=== PATIENT | female | born 1980 | race Caucasian/White ===

== ENCOUNTER 2021-11-04 11:44 | Outpatient (CLI) | payer BC, SELFPAY ==
--- NOTE | 2021-11-04 11:58 | XR_ITS ---
WS: [email or web address] XR hand LT 2V [id number] REASON FOR EXAM: M25.50 - Pain in unspecified joint FINDINGS: No fracture or dislocation. No focal bone lesion or periosteal reaction. Joint spaces of the hand are well preserved. No erosions or soft tissue abnormality. XR/XR hand LT 2V [id number] IMPRESSION: No significant abnormality.
--- NOTE | 2021-11-04 11:58 | XR_ITS ---
WS: [email or web address] XR sacroiliac jts m 3V [id number] REASON FOR EXAM: L40.9 - Psoriasis, unspecified FINDINGS: There is symmetric narrowing of the sacroiliac joints marginated by sclerosis on both the iliac and s acral sides of the joint space. No erosions. There is bridging and partial fusion right. Symmetric rarefaction/lucency in the periphery of the sacral wings marginated by thin sclerotic lines . XR/XR sacroiliac jts m 3V [id number] IMPRESSION: Sacroiliitis compatible with spondyloarthropathy. Lucencies in the sacrum are thought to be congenital/developmental. Not signifi cant.
--- NOTE | 2021-11-04 11:58 | XR_ITS ---
WS: [email or web address] XR lumbar spine 2-3V* [id number] REASON FOR EXAM: M25.50 - Pain in unspecified joint FINDINGS: No significant compression deformity or other focal vertebral body abnormality. Disc spaces L1-L5 relatively well-preserved. Mild to moderate narrowing of the L5-S1 disc space. No spondylolisthesis or spondylolysis. XR/XR lumbar spine 2-3V* [id number] IMPRESSION: Mild changes of degenerative spondylosis at L5-S1.
--- NOTE | 2021-11-04 11:58 | XR_ITS ---
WS: [email or web address] XR hand RT 2V [id number] REASON FOR EXAM: M25.50 - Pain in unspecified joint FINDINGS: No fracture or dislocation. No focal bone lesion. No periosteal reaction. Joint spaces of the right hand are well preserved. No erosions or soft tissue abnormality. XR/XR hand RT 2V [id number] IMPRESSION: No significant abnormality.
[2021-11-04 13:06] LABS: Erythrocyte Sedimentation Rate 26 mm/hr (0-15)
[2021-11-04 13:20] LABS: C Reactive Protein 4.6 mg/L (0.0-4.9); Creatine Phosphokinase 90 U/L (26-192); Ferritin 474 ng/mL (15-150); Iron 59 ug/dL (37-145); Magnesium 1.9 mg/dL (1.7-2.3); Phosphorus 2.6 mg/dL (2.5-4.5); Uric Acid 4.3 mg/dL (2.4-5.7)
[2021-11-04 13:36] LABS: Hepatitis B Core AB, Total Non-Reactive (Nonreactive); Hepatitis B Surface Antigen Non-Reactive (Nonreactive); Hepatitis C Virus Antibody Non-Reactive (Nonreactive); Vitamin B12 464 pg/mL (232-1245)
[2021-11-04 13:47] LABS: Calcium 8.7 mg/dL (8.5-10.5)
[2021-11-04 14:11] LABS: Parathyroid Hormone 26.5 pg/mL (15-65)
[2021-11-05 13:08] LABS: Cyclic Citrullinated Peptide <16 UNITS
[2021-11-05 16:08] LABS: CENTROMERE B ANTIBODY <1.0 NEG AI (<1.0 NEG); JO-1 ANTIBODY <1.0 NEG AI (<1.0 NEG); RNP ANTIBODY <1.0 NEG AI (<1.0 NEG); SCL-70 ANTIBODY <1.0 NEG AI (<1.0 NEG); SJOGREN'S ANTIBODY (SS-A) <1.0 NEG AI (<1.0 NEG); SM ANTIBODY <1.0 NEG AI (<1.0 NEG); SS-B <1.0 NEG AI (<1.0 NEG); THYROID PEROXIDASE ANTIBODIES 1 IU/mL (<9)
[2021-11-05 16:18] LABS: ANA SCREEN, IFA NEGATIVE (NEGATIVE)
[2021-11-06 08:38] LABS: HLA-B27 NEGATIVE (NEGATIVE)
[2021-11-06 11:38] LABS: COMPLEMENT COMPONENT C3C 161 mg/dL (83-193); COMPLEMENT COMPONENT C4C 22 mg/dL (15-57)
[2021-11-06 15:06] LABS: COMPLEMENT, TOTAL (CH50) >60 U/mL (31-60)
[2021-11-09 11:19] LABS: DNA AB (DS) CRITHIDIA,IFA NEGATIVE (NEGATIVE)
== END 2021-11-04 11:45 | disposition home or self-care (01) ==
LOC: RAD 11:52
PROVIDERS: PCP Nurse Practitioner Family; Visit Provider Internal Medicine
DX: M25.50 Pain in unspecified joint (principal); L40.9 Psoriasis, unspecified; M45.0 Ankylosing spondylitis of multiple sites in spine; Z11.59 Encounter for screening for other viral diseases
CPT/HCPCS: 72100; 72202; 73120; 82310; 82550; 82607; 82728; 83516; 83540; 83735; 83970; 84100; 84550; 85651; 86140; 86160; 86162; 86200; 86235; 86255; 86376; 86431; 86704; 86803; 86812; 87340

== ENCOUNTER 2022-03-18 08:58 | Outpatient (CLI) | payer BC, SELFPAY ==
--- NOTE | 2022-03-18 09:27 | XRR_ITS ---
PROCEDURE INFORMATION: Exam: XR Thoracic Spine Exam date and time: 03/18/2022 9:31 AM Age: 41 years old Clinical indication: Pain in thoracic spine; Patient HX: Joint pain; Additional info: R70.0 - elevated erythrocyte sedimentation rate TECHNIQUE: Imaging protocol: XR of the thoracic spine. Views: 3 views. COMPARISON: CR XR lumbar spine 2-3V* [id number] 11/04/2021 12:12 PM FINDINGS: Bones/joints: Normal. No acute fracture. Normal alignment. Vertebral body and disc heights are preserved. Soft tissues: Unremarkable. XR/XR thoracic spine 3V* [id number] IMPRESSION: Unremarkable radiographs of the thoracic spine.
--- NOTE | 2022-03-18 09:27 | XRR_ITS ---
PROCEDURE INFORMATION: Exam: XR Cervical Spine Exam date and time: 03/18/2022 9:31 AM Age: 41 years old Clinical indication: Neck pain; Patient HX: Joint pain; Additional info: R70.0 - elevated erythrocyte sedimentation rate TECHNIQUE: Imaging protocol: XR of the cervical spine. Views: 2 or 3 views. COMPARISON: No relevant prior studies available. FINDINGS: Bones/joints: Normal. No acute fracture. Normal alignment. Vertebral body and disc heights are preserved. Soft tissues: Unremarkable. XR/XR cervical spine fl/ex [id number] IMPRESSION: Unremarkable radiographs of the cervical spine.
[2022-03-18 09:41] LABS: Basophils % 0.3 %; Eosinophils % 0.2 %; Hematocrit 41.6 % (37.0-47.0); Lymphocytes # 1.6 10^3/uL (0.8-4.8); Mean Corpuscular HGB Conc 33.7 g/dL (30.0-36.0); Mean Corpuscular Hemoglobin 32.4 pg (28.0-34.0); Mean Corpuscular Volume 96.3 fl (81-99); Mean Platelet Volume 11.3 fL (7.4-10.4); Monocytes # 0.4 10^3/uL (0.2-0.9); Monocytes % 7.5 %; Neutrophils # 3.71 10^3/uL (1.8-7.7); Neutrophils % 63.7 %; Nucleated Red Blood Cells % 0 %; Platelet Count 267 10^3/cmm (130-400); Red Blood Count 4.32 10^6/uL (4.1-5.3); Red Cell Distribution Width 11.9 % (12.1-15.1); White Blood Count 5.8 10^3/uL (4.0-10.0)
[2022-03-18 10:04] LABS: Alanine Aminotransferase 23 U/L (0-33); Albumin Level 4.3 g/dL (3.5-5.2); Alkaline Phosphatase 59 IU/L (35-105); Anion Gap 13.2 (5-19); Aspartate Amino Transferase 21 U/L (0-32); Blood Urea Nitrogen 16 mg/dL (6-20); C Reactive Protein 4.3 mg/L (0.0-4.9); Calcium 9.2 mg/dL (8.5-10.5); Carbon Dioxide 26 mmol/L (22-29); Chloride 104 mmol/L (98-107); Globulin 2.8 g/dL (1.3-4.6); Glomerular Filtration Rate 91.3 mL/min (90-130); Glucose 106 mg/dL (65-115); Osmolality Calculated 290 mOsm/kg (285-295); Potassium 4.2 mmol/L (3.5-5.1); Sodium 139 mmol/L (136-145); Total Bilirubin 0.2 mg/dL (0.15-1.2); Total Protein 7.1 g/dL (6.6-8.7)
[2022-03-18 10:59] LABS: Erythrocyte Sedimentation Rate 15 mm/hr (0-15)
== END 2022-03-18 08:59 | disposition home or self-care (01) ==
LOC: LAB 09:00
PROVIDERS: PCP Nurse Practitioner Family; Visit Provider Internal Medicine
DX: M25.50 Pain in unspecified joint (principal); M54.2 Cervicalgia; M54.6 Pain in thoracic spine; M53.3 Sacrococcygeal disorders, not elsewhere classified; R70.0 Elevated erythrocyte sedimentation rate; Z79.899 Other long term (current) drug therapy
CPT/HCPCS: 36415; 72040; 72072; 80053; 85025; 85651; 86140

== ENCOUNTER 2022-06-29 14:43 | Outpatient (CLI) | payer BC, SELFPAY ==
[2022-06-29 15:06] LABS: Basophils % 0.1 %; Hematocrit 42.4 % (37.0-47.0); Hemoglobin 14.1 g/dL (11.5-15.3); Lymphocytes % 26.4 %; Mean Corpuscular HGB Conc 33.3 g/dL (30.0-36.0); Mean Corpuscular Hemoglobin 31.9 pg (28.0-34.0); Mean Corpuscular Volume 95.9 fl (81-99); Monocytes # 0.5 10^3/uL (0.2-0.9); Monocytes % 6.1 %; Neutrophils # 5.06 10^3/uL (1.8-7.7); Neutrophils % 67.1 %; Nucleated Red Blood Cells % 0 %; Platelet Count 322 10^3/cmm (130-400); Red Blood Count 4.42 10^6/uL (4.1-5.3); White Blood Count 7.5 10^3/uL (4.0-10.0)
[2022-06-29 15:17] LABS: Erythrocyte Sedimentation Rate 17 mm/hr (0-15)
[2022-06-29 15:58] LABS: Alanine Aminotransferase 20 U/L (0-33); Albumin Level 4.3 g/dL (3.5-5.2); Alkaline Phosphatase 61 IU/L (35-105); Anion Gap 16.8 (5-19); Aspartate Amino Transferase 17 U/L (0-32); Blood Urea Nitrogen 9 mg/dL (6-20); C Reactive Protein 4.6 mg/L (0.0-4.9); Carbon Dioxide 23 mmol/L (22-29); Chloride 103 mmol/L (98-107); Globulin 2.7 g/dL (1.3-4.6); Glomerular Filtration Rate 91.3 mL/min (90-130); Glucose 92 mg/dL (65-115); Osmolality Calculated 286 mOsm/kg (285-295); Potassium 3.8 mmol/L (3.5-5.1); Sodium 139 mmol/L (136-145); Total Bilirubin 0.3 mg/dL (0.15-1.2)
== END 2022-06-29 14:44 | disposition home or self-care (01) ==
LOC: LAB 14:44
PROVIDERS: PCP Nurse Practitioner Family; Visit Provider Internal Medicine
DX: M25.50 Pain in unspecified joint (principal); M53.3 Sacrococcygeal disorders, not elsewhere classified; Z79.899 Other long term (current) drug therapy
CPT/HCPCS: 36415; 80053; 85025; 85651; 86140

== ENCOUNTER 2022-09-30 13:55 | Outpatient (CLI) | payer BC, SELFPAY ==
[2022-09-30 14:19] LABS: Basophils % 0.1 %; Erythrocyte Sedimentation Rate 9 mm/hr (0-15); Hematocrit 38.6 % (37.0-47.0); Lymphocytes % 25.7 %; Mean Corpuscular HGB Conc 33.7 g/dL (30.0-36.0); Mean Corpuscular Hemoglobin 32.8 pg (28.0-34.0); Mean Corpuscular Volume 97.5 fl (81-99); Mean Platelet Volume 10.9 fL (7.4-10.4); Monocytes # 0.5 10^3/uL (0.2-0.9); Monocytes % 5.9 %; Neutrophils # 5.15 10^3/uL (1.8-7.7); Neutrophils % 67.9 %; Nucleated Red Blood Cells % 0 %; Platelet Count 296 10^3/cmm (130-400); Red Blood Count 3.96 10^6/uL (4.1-5.3); Red Cell Distribution Width 11.7 % (12.1-15.1); White Blood Count 7.6 10^3/uL (4.0-10.0)
[2022-09-30 14:40] LABS: Alanine Aminotransferase 16 U/L (0-33); Albumin Level 4.2 g/dL (3.5-5.2); Alkaline Phosphatase 71 U/L (35-105); Anion Gap 16.3 (5-19); Aspartate Amino Transferase 16 U/L (0-32); Blood Urea Nitrogen 13 mg/dL (6-20); C Reactive Protein 5.4 mg/L (0.0-4.9); Calcium 9.2 mg/dL (8.5-10.5); Carbon Dioxide 25 mmol/L (22-29); Chloride 99 mmol/L (98-107); Globulin 2.6 g/dL (1.3-4.6); Glomerular Filtration Rate 91.3 mL/min (90-130); Glucose 123 mg/dL (65-115); Osmolality Calculated 285 mOsm/kg (285-295); Potassium 3.3 mmol/L (3.5-5.1); Sodium 137 mmol/L (136-145); Total Bilirubin 0.3 mg/dL (0.15-1.2); Total Protein 6.8 g/dL (6.6-8.7)
[2022-09-30 14:55] LABS: 25 Hydroxy Vitamin D 59 ng/mL (30-100)
== END 2022-09-30 13:56 | disposition home or self-care (01) ==
PROVIDERS: PCP Nurse Practitioner Family; Visit Provider Internal Medicine
DX: R70.0 Elevated erythrocyte sedimentation rate (principal); M25.50 Pain in unspecified joint; M53.3 Sacrococcygeal disorders, not elsewhere classified; R10.9 Unspecified abdominal pain
CPT/HCPCS: 36415; 80053; 82306; 85025; 85651; 86140

== ENCOUNTER 2023-02-08 13:04 | Outpatient (CLI) | payer BC, SELFPAY ==
[2023-02-08 14:36] LABS: Alanine Aminotransferase 24 U/L (0-33); Albumin Level 4.1 g/dL (3.5-5.2); Alkaline Phosphatase 50 U/L (35-105); Anion Gap 11.1 (5-19); Aspartate Amino Transferase 19 U/L (0-32); Blood Urea Nitrogen 15 mg/dL (6-20); C Reactive Protein 3.5 mg/L (0.0-4.9); Carbon Dioxide 28 mmol/L (22-29); Chloride 103 mmol/L (98-107); Globulin 2.6 g/dL (1.3-4.6); Glomerular Filtration Rate 77.9 mL/min (90-130); Glucose 90 mg/dL (65-115); Osmolality Calculated 286 mOsm/kg (285-295); Potassium 4.1 mmol/L (3.5-5.1); Sodium 138 mmol/L (136-145); Total Bilirubin 0.2 mg/dL (0.15-1.2); Total Protein 6.7 g/dL (6.6-8.7)
[2023-02-08 14:37] LABS: Basophils % 0.3 %; Hematocrit 39.5 % (37.0-47.0); Hemoglobin 12.8 g/dL (11.5-15.3); Lymphocytes # 1.6 10^3/uL (0.8-4.8); Lymphocytes % 16.6 %; Mean Corpuscular HGB Conc 32.4 g/dL (30.0-36.0); Mean Corpuscular Hemoglobin 31.9 pg (28.0-34.0); Mean Corpuscular Volume 98.5 fl (81-99); Mean Platelet Volume 11.4 fL (7.4-10.4); Monocytes # 0.7 10^3/uL (0.2-0.9); Monocytes % 6.9 %; Nucleated Red Blood Cells % 0 %; Platelet Count 278 10^3/cmm (130-400); Red Blood Count 4.01 10^6/uL (4.1-5.3); Red Cell Distribution Width 11.9 % (12.1-15.1); White Blood Count 9.7 10^3/uL (4.0-10.0)
[2023-02-08 14:38] LABS: Erythrocyte Sedimentation Rate 7 mm/hr (0-15)
== END 2023-02-08 13:05 | disposition home or self-care (01) ==
PROVIDERS: PCP Nurse Practitioner Family; Visit Provider Internal Medicine
DX: M25.50 Pain in unspecified joint (principal)
CPT/HCPCS: 36415; 80053; 85025; 85651; 86140

== ENCOUNTER → 2023-05-31 14:34 | Outpatient (BNVA) | payer BC, SELFPAY | PROVIDERS: PCP Nurse Practitioner Family; Visit Provider Internal Medicine | DX: L40.9 Psoriasis, unspecified (principal); R70.0 Elevated erythrocyte sedimentation rate | CPT/HCPCS: 72202; 80053; 82728; 83540; 85025; 85651; 86140 ==

== ENCOUNTER → 2023-09-01 11:53 | Outpatient (BNVA) | payer BC, SELFPAY | PROVIDERS: PCP Nurse Practitioner Family; Visit Provider Internal Medicine | DX: M53.3 Sacrococcygeal disorders, not elsewhere classified (principal); M25.50 Pain in unspecified joint; R70.0 Elevated erythrocyte sedimentation rate | CPT/HCPCS: 36415; 80053; 82728; 83520; 83540; 85025; 85651; 86003; 86008; 86140; 86480 ==